=== PATIENT | male | born 1955 | race Caucasian/White ===

== ENCOUNTER 2018-01-06 08:39 | Emergency (ER) | payer BC, SELFPAY ==
[2018-01-06] VITALS (9 sets, daily range): BP systolic 113–178; BP diastolic 86–98; PULSE 11–119; RESP 20–24; TEMP 37.3–39.7; O2SAT 77–97; BMI 52.4
--- NOTE | 2018-01-06 08:48 | EKG12_ITS ---
Test Reason : SOB Blood Pressure : / mmHG Vent. Rate : 126 BPM Atrial Rate : 126 BPM P-R Int : 156 ms QRS Dur : 106 ms QT Int : 304 ms P-R-T Axes : 065 153 029 degrees QTc Int : 440 ms Sinus tachycardia Poor R wave progression Confirmed by SENAIT GUY MD ([id number]), script editor AMY PUGA ([id number] on 01/09/2018 1:35:52 PM Referred By: VALENTIN
[2018-01-06] MEDS: Ipratropium/Albuterol Sulfate 3 ML AMPUL.NEB INHALATION (08:49)
[2018-01-06 09:04] LABS: Absolute Lymphocyte Count 1.35 X10^3/ul (0.83-4.51); Absolute Neutrophil Count 8.5 X10^3/uL (2.0-7.7); Basophil# 0.02 X10^3/uL; Basophil% 0.2 % (0-1); Eosinophil# 0.06 X10^3/uL; Eosinophils% 0.6 % (0-5); Hematocrit 44.8 % (40-54); Hemoglobin 13.7 g/dl (13.0-16.5); Lymphocyte # 1.35 X10^3/ul (4.0); Lymphocyte % 12.7 % (19-41); Mean Corp Hgb Conc 30.6 g/gl (32-36); Mean Corpuscular Hgb 25.9 pg (27.0-32.0); Mean Corpuscular Volume 84.8 fL (80-94); Mean Platelet Vol. 9.8 fl (6.2-12.0); Monocyte# 0.71 X10^3/uL; Monocyte% 6.7 % (0-10); Neutrophil # 8.45 X10^3/uL (2.7-7.7); Neutrophil % 79.6 % (47-70); Platelet Count 192 K/mm3 (150-450); RBC Distribution Width CV 17.4 % (11.6-14.6); RBC Distribution Width SD 53.7 fl (35.1-43.9); Red Blood Count 5.28 M/mm3 (4.6-6.2); White Blood Count 10.6 K/mm3 (4.4-11.0)
[2018-01-06 09:05] LABS: POSITIVE COUNT NO; POSITIVE DIFFERENTIAL NO; POSITIVE MORPHOLOGY NO
--- NOTE | 2018-01-06 09:09 | ED.VISSUMM ---
- ER Visit Summary Date of Service: 01/06/18 Chief Complaint: [] Fever shortness of breath pulse ox 75 room air draining leg ulcers, history of DVT PE diagnosed 1 month ago at [facility] History of Present Illness: The patient is a 62 M [] multiple medical problems including the above apparently he developed chills at work he refused to come to the hospital coworkers called EMS and/or he was brought in. He was found to have a pulse ox of 75% on room air he is not known to require oxygen, he has obviously draining wounds to lower extremities and temperature 103.4 his blood pressure is 170/80 he is tachycardic to 120 he clearly falls into the sepsis treatment protocols. He is awake and alert oriented ?3 moving all 4 extremities indicates he has DVT PE diagnosed at [facility] about a month ago he has been on anticoagulant, he has chronic draining wounds to his lower extremities for which she seen multiple physicians at [facility], he did not realize he had a fever he basically reports he woke up felt fine went to work got shaking chills and was brought to the hospital he has had a cough for months he is eating drinking well his bowel bladder habits have been normal He denies any history of underlying lung disease except that that would be related to the PEs he has no history of COPD he is not known to require oxygen he is really on no meds except for the blood thinner by his history, he denies a history of ID PE or DVT previously to the above Physical Examination: [] Temperature is 103.4 his heart rates 120 his blood pressure is 170/80 his pulse ox is 75% on room air it improves to about a percent on a 50% Ventimask he speaking in full sentences he is in no distress he is alert ?3 moving all 4 extremities his HEENT exam shows a nose is congested the oral cavity is generally unremarkable the lungs are rhonchorous the heart tones are distant he is a very large gentleman he has a very protuberant nontender abdomen he has draining lesions to both lower extremities greater than left with signs of cellulitis no crepitance or subcu air appreciated he appears to have well perfused lower extremities to the toes pulses are palpable, there is some minor skin ulcerations bilaterally again right greater than left. He is awake alert coherent and competent I discussed sepsis hypoxia PE sudden from all the above or combination I explained the need for aggressive ED management and admission he adamantly declined that stating he just came in because of the chills he wanted something for that and wanted to be discharged I explained that if he went home he would , he clearly was able to explain my concerns and repeat and read back to me all of my concerns including the concern about sudden he clearly had capacity and demonstrated clear understanding of all the above but still refused therapy and admission, later he at least agreed to obtain screening labs IV fluids IV antibiotics I explained to him I felt would be prudent to at least talk to his family he would not provide me the phone number for his mother Test Results: [] Emergency Department Course and Treatment: [] Labs are generally unremarkable for him see those reports chest x-ray shows nothing acute EKG shows a sinus tach reevaluation his temperature now is 99 his blood pressure seems much better on oxygen his pulse ox is 95, on room air is at about 85 after an aerosol Sepsis sudden again he showed clear competency capacity he read back to me all of my concerns he simply stated he understood them and did not wish to be admitted he indicates he has an appointment see his family physician tomorrow at this time we provided wound care to lower extremities he will be discharged at his request and AGAINST MEDICAL ADVICE on Augmentin at his request he will sign out AMA, he does understand and agree to return if his symptoms change or intensified anyway and an inhaler other meds that he will take, please also note the patient has refused to give us consent to contact anyone that he is related to or anyone he knows Treatment Plan: [] Disposition: [] Home AGAINST MEDICAL ADVICE Impression: [] Sepsis, history of bilateral PE, hypoxia on room air, tachycardia fever bilateral lower extremity infections patient refused admission left AMA has capacity to make that decision This note was generated with [employer] dictation software. It may contain incorrect words, spelling, and punctuation that were not noted in review of the chart prior to signing ED Disposition - Plan for ED Patient: Chief Complaint: Shortness of Breath Referrals: Kennedi Lozano NP-C [Primary Care Provider] -
[2018-01-06 09:26] LABS: AST(SGOT) 17 U/L (15-37); Alanine Aminotransfer ALT/SGPT 13 U/L (16-61); Albumin, Serum 2.6 g/dL (3.2-5.0); Alkaline Phosphatase 62 U/L (45-117); Anion Gap 8 (5-15); BUN 15 mg/dL (7-18); BUN/Creat Ratio 18.4 RATIO (10-20); Bilirubin, Direct 0.24 mg/dL (0.00-0.30); Calcium,Total 8.5 mg/dL (8.5-10.1); Chloride 101 mmol/L (98-107); Creatinine, Serum 0.81 mg/dL (0.70-1.30); EST Glomerular Filtration Rate 102 mL/min (>60); Est Glom Filt Rate - Afr Amer 124 mL/min (>60); Estimated Creatinine Clearance 103.29 ml/min; Globulin 4.8 g/dL (2.2-4.2); Glucose 145 mg/dL (74-106); Potassium 3.4 mmol/L (3.5-5.1); Protein, Total 7.4 g/dL (6.4-8.2); Sodium Level 139 mmol/L (136-145)
--- NOTE | 2018-01-06 09:28 | RAD_ITS ---
STUDY: X-RAY CHEST REASON FOR EXAM: Male, 62 years old. Dyspnea. TECHNIQUE: Single AP portable view of the chest. COMPARISON: None. FINDINGS: The lungs are hypoexpanded. There is diffuse interstitial changes most marked at the lung bases. There is no demonstrated pleural abnormality. The heart is borderline enlarged. All mediastinum. There are densities in both lew suspicious for calcified lymph nodes. Normal visualized pulmonary arteries. Normal visualized aortic arch and descending thoracic aorta. The thoracic spine is obscured by the mediastinum. There is degenerative osteoarthritis of the bilateral shoulders. There is no demonstrated abnormality of the visualized soft tissue structures of the upper abdomen. RAD/Chest 1 View (Portable) IMPRESSION: Question old granulomatous disease. Electronically Signed: Damian Mullins DO at 10:01 EDT Tel [phone], Service support ,
[2018-01-06 09:30] LABS: BNP,B-Type NATRIURETIC PEPTIDE 207.8 pg/mL (0-100)
[2018-01-06] MEDS: Acetaminophen 500 MG Tablet 1000 MG PO (09:31)
[2018-01-06] MEDS: 0.9% Normal Saline 1,000 ML 150 ML IV (09:31)
[2018-01-06 09:32] LABS: Bacteria 0 SEEN /hpf (None Seen); Mucous, Urine 0 SEEN /hpf (<or=2+); Red Blood Cells-Urine 0 SEEN /hpf (0-5)
[2018-01-06 09:35] LABS: International Normalized Ratio 1.4; Prothrombin Time (Protime)PT. 17.1 SECONDS (11.7-14.9)
[2018-01-06 09:36] LABS: Partial Thromboplast Time 56.8 Seconds (24.1-36.2)
[2018-01-06 09:37] LABS: Color, Urine Yellow (Yellow); Glucose, Dipstick Normal (Normal); Ketone-Dipstick Negative (Negative); Leukocyte Esterase-Dipstick 25 /ul (Negative); Nitrite-Dipstick Negative (Negative); Occult Blood-Urine Negative /ul (Negative); Protein-Dipstick 30 mg/dl (Negative); Urine Clarity Clear (Clear); Urine Urobilinogen 4 mg/dl (Normal)
[2018-01-06 09:43] LABS: Urine Bilirubin Dipstick 1 mg/dL (Negative)
[2018-01-06 09:44] LABS: Amorphous Sediment 1+; Squamous Epithelial Cells - UA 0-5 SEEN /hpf (0-5); White Blood Cells 0-5 SEEN /hpf (0-5)
--- NOTE | 2018-01-06 10:34 | ED.DEP ---
ED Disposition - Plan for ED Patient: Chief Complaint: Shortness of Breath Instructions: Sepsis Prescriptions: Amox/Clavulanate Tablet [Augmentin Tablet] 875 mg PO Q12H #20 tab Referrals: Kennedi Lozano NP-C [Primary Care Provider] -
[2018-01-06] MEDS: BACITRACIN 15 GM Tube 1 APPLIC TOPICAL (13:08)
[2018-01-06 13:13] LABS: Reflex Lactate? Y
--- NOTE | 2018-01-07 12:10 | CM.ED ---
ED CALLBACK: Patient left AMA yesterday with a diagnosis of sepsis. Follow-up phone call at this time encouraging patient to come back to ED to be evaluated. Patient states that he is feeling weak today. Patient denies chills/fever and states he has not taken any fever reducing agents. Patient states that he has not filled his prescription for Augmentin yet, but plans to soon on his way to work. 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 I reviewed potential severity of sepsis left improperly treated and monitored. Patient states I think this antibiotic will help. I inquired what patients concern with admission to hospital was. Patient states insurance/cost is not a factor, but that I can't miss work. Once again, reviewed severity of illness and potential for quick decline. Patient did write down my number and I asked patient to call me with any concerns at all.
== END 2018-01-06 13:09 | disposition home or self-care (01) ==
LOC: ED 09:06
PROVIDERS: Emergency Provider Emergency Medicine; Family Provider Nurse Practitioner Primary Care; PCP Nurse Practitioner Primary Care
DX: A41.9 Sepsis, unspecified organism (principal); R09.02 Hypoxemia; R00.0 Tachycardia, unspecified; L97.929 Non-pressure chronic ulcer of unspecified part of left lower leg with unspecified severity; L97.919 Non-pressure chronic ulcer of unspecified part of right lower leg with unspecified severity; L03.116 Cellulitis of left lower limb; L03.115 Cellulitis of right lower limb; Z86.711 Personal history of pulmonary embolism; Z86.718 Personal history of other venous thrombosis and embolism; Z79.01 Long term (current) use of anticoagulants
CPT/HCPCS: 71045; 80048; 80076; 81001; 83605; 83880; 84484; 85025; 85610; 85730; 87040; 87086; 93005; 94640; 96365; 96367; 99285; J7030; J7040; P9612; A4216

== ENCOUNTER 2018-01-30 08:55 | Outpatient (RCR) | payer BC, SELFPAY ==
[2018-01-30 10:20] VITALS: BP 117/51; PULSE 91; RESP 18; TEMP 35.5
--- NOTE | 2018-01-30 11:45 | PCM.WC.HP ---
(1) Chronic ulcer of right leg with fat layer exposed Status: Resolved Current Visit: Yes Code(s): L97.912 - Non-pressure chronic ulcer of unspecified part of right lower leg with fat layer exposed (2) Smoker Status: Chronic Current Visit: Yes Code(s): F17.200 - Nicotine dependence, unspecified, uncomplicated (3) Obesity Status: Chronic Current Visit: Yes Code(s): E66.9 - Obesity, unspecified (4) Malnutrition Status: Chronic Current Visit: Yes Code(s): E46 - Unspecified protein-calorie malnutrition (5) Venous insufficiency Status: Chronic Current Visit: Yes (6) Edema, lower extremity Status: Chronic Current Visit: Yes Code(s): R60.0 - Localized edema History of Present Illness Date of Service: 01/30/18 Chief Complaint: right leg wound History of Wound: This 61 year old male present to the wound healing center for evaluation of right leg ulcer that has returned approximately 5 months ago. He is well-known to the wound care center in the past for this ulcer to the similar location. He denies current fever, chills, nausea, vomiting, calf pain. He has a procedure scheduled with Dr Awan for vein correction and failed to follow through redness. He elevates his leg and has stopped being compliant with the compression dressing. He has compression stockings at home. He denies redness or drainage. Past Medical History Past Medical History: Chronic Problems Smoker (Chronic) Obesity (Chronic) Malnutrition (Chronic) Venous insufficiency (Chronic) Edema, lower extremity (Chronic) Surgical History: no surgical history Allergies/Adverse Reactions: Allergies No Known Allergies Allergy (Verified 09/20/16 10:30) Home Medications: Ambulatory Orders Medication Instructions Recorded Apixaban [Eliquis] 5 mg PO BID 01/06/18 Albuterol IH (ProAir) [Proair Hfa 1 - 2 puff INHALATION Q6H PRN PRN 01/30/18 (SP)Vent Pts] Furosemide [Lasix] 20 mg PO DAILY 01/30/18 Lisinopril/Hydrochlorothiazide 1 tablet PO DAILY 01/30/18 [Zestoretic 20/12.5 Tablet] - Family History Maternal Stroke, Seizures Smoking Status: Light Smoker (<10/day) Review of Systems Constitutional: Denies: Chills, Fever, Weakness Cardiovascular: Reports: Edema. Denies: Claudication, Orthopnea Respiratory: Denies: Shortness of Breath Gastrointestinal: Denies: Nausea, Vomiting Musculoskeletal: Denies: Leg Pain Skin: Reports: Skin Changes, Wounds. Denies: Pruritis Neurological: Denies: Numbness Endocrine: Reports: Change in Body Habitus Hematologic/ Lymphatic: Reports: Hx of blood clot - Lung; he is on chronic Eliquis - Physical Exam Vital Signs Temp Pulse Resp BP 96 F L 91 18 117/51 L 01/30/18 10:20 01/30/18 10:20 01/30/18 10:20 01/30/18 10:20 General: Alert, Oriented x3, Cooperative Extremities: No cyanosis, Capillary Refill Less than 3 Seconds, No Calf Tenderness - Negative Tiana and [place] sign bilateral lower extremities, Diminished Peripheral Pulses, Edema - Bilateral lower extremities Skin: Ulcer/ Wound - No purulence, no erythema, streaking, no odor, no necrosis, no deep tissue exposure, no infection bilateral lower extremities. His skin is atrophic. There is some hair present to the right lower extremity. There is hyperpigmentation the right leg periwound site that is a cluster. Wound Measurements and Assessment WC - Nurse 1 - General Ulcer Measurement Start: 01/30/18 10:07 Freq: Status: Active Protocol: Activity Type Activity Date Activity User E-Sign Co-Sign Detail Recorded Client Recorded Date Recorded By Document 01/30/18 10:20 [id number] 01/30/18 10:30 RB 01/30/18 10:20 Wound Center Nurse 1 [Ulcer Assessment] 1-right galvez cluster -Combined with other wound No -Current Size (cm) - Length 17 -Current Size (cm) - Width 21 -Current Size (cm) - Depth 0.2 -Total Square Cm 357 -Photo Taken Yes -Tunneling No -Circular Undermining No -Classification - Thickness Full Thickness without Exposed Support Structure -Exudate Amt Medium (34-66%) -Exudate Type Serosanguineous -Wound Margin Distinct, Outline Attached -Granulation Amt Medium (34-66%) -Granulation Quality [place] -Slough/Fibrin Yes -Necrosis Amt Medium (34-66%) -Necrotic Tissue Type Adherent Slough -Structure Exposed N/A -Texture (Brittani-wound Skin Appearance) Assessed -Moisture (Brittani-wound Skin Appearance Assessed ) -Color (Brittani-wound Skin Appearance) Hemosiderin Staining -Temperature (Brittani-wound Skin No Abnormality Appearance) (Pt Warm) -Tenderness on Palpation (Brittani-wound No Skin Appearance) -Ulcer Cleansing Rinsed/ Irrigated with Saline -Foul Odor after Cleansing No -Anesthetic Used 4% Lidocaine Solution [Edema Assessment] -Lower Limb Edema Present Yes -Right Calf (cm) 61.2 -Right Ankle (cm) 37 -Left Calf (cm) 57 -Left Ankle (cm) 33.5 - Nurse 2 - General Ulcer CM Notes Start: 01/30/18 10:07 Freq: Status: Active Protocol: Activity Type Activity Date Activity User E-Sign Co-Sign Detail Recorded Client Recorded Date Recorded By Document 01/30/18 11:00 [id number] 01/30/18 11:01 01/30/18 11:00 Wound Center Nurse 2 [Procedure/Treatment] 1-right galvez cluster -Time 11:00 -Correct Patient Yes -Correct Side, Site, Position Yes -Correct Procedure Yes -Procedure Performed Yes -Type of Procedure Debridement -Clinical Debridement Subcutaneous -Post Debridement Size (cm) - Length 17.1 -Post Debridement Size (cm) - Width 21 -Post Debridement Size (cm) - Depth 0.2 -Total Square Cm 359.1 -Wound/Ulcer Outcome Not Healed -Ulcer Cleansing Rinsed/ Irrigated with Saline -Foul Odor after Cleansing No -Bioengineered Tissue No -Bleeding Controlled with Pressure -Other 70% ULCER debrided. -Treatment Response Procedure Tolerated Well [See Physician Procedure note for Specifics] Pain Scale: 0-10 Numeric [Pain] -Is Patient Pain Free? Yes Musculoskeletal: No Tenderness to Palpation of Joints or Extremities, Muscle Wasting, - - No crepitus or bogginess on palpation right lower extremity Neurological: - - Lack of epicritic sensation light touch right lower extremity Psych/Mental Status: Normal Affect, Appropriate Debridement Note Post-Debridement Measurements/Treatment - Nurse 2 - General Ulcer CM Notes Start: 01/30/18 10:07 Freq: Status: Active Protocol: Activity Type Activity Date Activity User E-Sign Co-Sign Detail Recorded Client Recorded Date Recorded By Document 01/30/18 11:00 JF [id number] 01/30/18 11:01 01/30/18 11:00 Wound Center Nurse 2 1-right galvez cluster -Time 11:00 -Correct Patient Yes -Correct Side, Site, Position Yes -Correct Procedure Yes -Procedure Performed Yes -Type of Procedure Debridement -Clinical Debridement Subcutaneous -Post Debridement Size (cm) - Length 17.1 -Post Debridement Size (cm) - Width 21 -Post Debridement Size (cm) - Depth 0.2 -Total Square Cm 359.1 -Wound/Ulcer Outcome Not Healed -Ulcer Cleansing Rinsed/ Irrigated with Saline -Foul Odor after Cleansing No -Bioengineered Tissue No -Bleeding Controlled with Pressure -Other 70% ULCER debrided. -Treatment Response Procedure Tolerated Well Pain Scale: 0-10 Numeric Is Patient Pain Free? Yes Wound debrided: leg Laterality: Right Type of Debridement: Excisional debridement Anesthesia Used: 5% Lidocaine Gel Depth: in the subcutaneous layer Percentage of wound debrided: 70 Instrument Used: #15 blade Tissue Removed: fibrous, devitalized subcutaneous, biofilm, slough Severity: Fat Layer Exposed Amount of bleeding with debridement: Mild Bleeding Controlled with: Pressure Patient tolerated procedure well Assessment/Plan Active Problems Smoker (Chronic) Obesity (Chronic) Malnutrition (Chronic) Venous insufficiency (Chronic) Edema, lower extremity (Chronic) Assessment: right leg ulcer-return. edema right lower extremity, venous insufficiency noted. diabetes. malnutrition. comorbidities: obesity. smoker Plan: I discussed this patient's case and care plan. His wound is healed today. To elevate legs at rest to decrease pressure to his healing ulceration site. To control edema to optimize healing. To elevate limbs at rest. Venous doppler with venous reflux examination was ordered to assess for insufficiency and this was discussed. Intervention was recommended and scheduled with Dr. Awan was not completed. A new referral was provided today and encourage compliance. I advised him to call and f/u on scheduling this or provide a more reliable way to contact him to facilitate this process. To resume compression stocking use that he is at home. An order for CircAid compression dressing was placed today to better control his leg edema. To moisturize leg daily with eucerin and cleanse with soap and water. Smoking cessation was encouraged. To monitor for signs of infection or for new wound formation or worsening status. Debridement was performed as noted in the clinical panel. He was advised to change dressing daily to target take. To return to clinic in 1 week or call sooner if he has any questions or concerns. I answered all his questions today.
== END 2018-01-31 23:59 ==
LOC: WC 08:55
PROVIDERS: Family Provider Nurse Practitioner Primary Care; PCP Nurse Practitioner Primary Care; Visit Provider Podiatrist
DX: L97.912 Non-pressure chronic ulcer of unspecified part of right lower leg with fat layer exposed (principal); E66.9 Obesity, unspecified; E46 Unspecified protein-calorie malnutrition; I87.2 Venous insufficiency (chronic) (peripheral); R60.0 Localized edema; F17.200 Nicotine dependence, unspecified, uncomplicated
CPT/HCPCS: 11042; 11045; 29581; 99212; G0463

== ENCOUNTER → 2018-02-04 09:53 | Outpatient (CLI) | payer BC, SELFPAY ==
--- NOTE | 2018-02-04 09:53 | DT_ITS ---
This patient was seen during an EMR downtime February 04, 2018 - February 11, 2018. This patient may have a combination of paper and electronic documentation or all paper documentation. All documentation is viewable within the e-chart portion of [employer] for each patient visit.
[2018-02-08 20:29] LABS: Red Blood Count 5.39 M/mm3 (4.6-6.2); White Blood Count 8.5 K/mm3 (4.4-11.0)
[2018-02-08 20:30] LABS: Absolute Lymphocyte Count 1.32 X10^3/ul (0.83-4.51); Absolute Neutrophil Count 6.3 X10^3/uL (2.0-7.7); Basophil# 0.01 X10^3/uL; Basophil% 0.1 % (0-1); Eosinophil# 0.04 X10^3/uL; Eosinophils% 0.5 % (0-5); Hematocrit 45.5 % (40-54); Lymphocyte # 1.32 X10^3/ul (4.0); Lymphocyte % 15.5 % (19-41); Mean Corp Hgb Conc 30.8 g/gl (32-36); Mean Corpuscular Volume 84.4 fL (80-94); Mean Platelet Vol. 11.2 fl (6.2-12.0); Monocyte% 9.4 % (0-10); Neutrophil # 6.32 X10^3/uL (2.7-7.7); Neutrophil % 74.1 % (47-70); POSITIVE COUNT NO; POSITIVE DIFFERENTIAL NO; POSITIVE MORPHOLOGY NO; Platelet Count 177 K/mm3 (150-450); RBC Distribution Width CV 19.4 % (11.6-14.6); RBC Distribution Width SD 59.5 fl (35.1-43.9)
[2018-02-08 20:31] LABS: ALB/GLOB Ratio 0.5 RATIO (0.9-2.4); AST(SGOT) 22 U/L (15-37); Albumin, Serum 2.5 g/dL (3.2-5.0); Alkaline Phosphatase 44 U/L (45-117); BUN 36 mg/dL (7-18); BUN/Creat Ratio 39.1 RATIO (10-20); Calcium,Total 8.4 mg/dL (8.5-10.1); Creatinine, Serum 0.92 mg/dL (0.70-1.30); EST Glomerular Filtration Rate 89 mL/min (>60); Est Glom Filt Rate - Afr Amer 108 mL/min (>60); Globulin 5.3 g/dL (2.2-4.2); Glucose 112 mg/dL (74-106); Protein, Total 7.8 g/dL (6.4-8.2)
[2018-02-08 20:32] LABS: Alanine Aminotransfer ALT/SGPT 24 U/L (16-61); Sodium Level 136 mmol/L (136-145)
[2018-02-08 20:34] LABS: Anion Gap 8 (5-15); Chloride 96 mmol/L (98-107); Erythrocyte Sedimentation Rate 29 mm/hr (0-20)
== END ==
PROVIDERS: Family Provider Nurse Practitioner Primary Care; PCP Nurse Practitioner Primary Care; Visit Provider Podiatrist
DX: L97.912 Non-pressure chronic ulcer of unspecified part of right lower leg with fat layer exposed (principal)
CPT/HCPCS: 36415; 80053; 85025; 85652; 86140

== ENCOUNTER 2018-02-27 08:30 | Outpatient (RCR) | payer BC, SELFPAY ==
[2018-02-01 01:17] VITALS: BP 117/51; PULSE 91; RESP 18; TEMP 35.5
[2018-02-01 09:01] VITALS: BP 130/80; PULSE 101; RESP 20; TEMP 37.3
--- NOTE | 2018-02-01 11:10 | PN.PCM_ITS ---
(1) Edema, lower extremity Status: Chronic Current Visit: Yes Code(s): R60.0 - Localized edema (2) Malnutrition Status: Chronic Current Visit: Yes Code(s): E46 - Unspecified protein- calorie malnutrition (3) Obesity Status: Chronic Current Visit: Yes Code(s): E66.9 - Obesity, unspecified (4) Smoker Status: Chronic Current Visit: Yes Code(s): F17.200 - Nicotine dependence, unspecified, uncomplicated (5) Venous insufficiency Status: Chronic Current Visit: No (6) Chronic ulcer of right leg with fat layer exposed Status: Resolved Current Visit: Yes Code(s): L97.912 - Non-pressure chronic ulcer of unspecified part of right lower leg with fat layer exposed Type of Wound Date of Service: 02/01/18 Chief Complaint: right leg wound History of Wound: This 61 year old male present to the wound healing center for evaluation of right leg ulcer that has returned approximately 5 months ago. He is well-known to the wound care center in the past for this ulcer to the similar location. He denies current fever, chills, nausea, vomiting, calf pain. He has a procedure scheduled with Dr Awan for vein correction and failed to follow through redness. He elevates his leg and has stopped being compliant with the compression dressing. He has compression stockings at home. He denies redness or drainage. Progress of Wound: I was asked to come into the room because patient is developing Rigors and fever low-grade at this point. Patient states he has developed a cough nonproductive and was here for a nurse visit for wound care. Patient sees Dr. Sania Lynch usually and have him follow-up with him on Sunday or Sunday if not improving on the Z-Carlos prescribed. HEENT within normal limits lungs diminished had some rhonchorous expiratory wheezing cleared with cough. Denies chest pain shortness of breath or nauseous or vomiting. - Physical Exam Vital Signs Temp Pulse Resp BP 99.1 F 101 H 20 H 130/80 H 02/01/18 09:01 02/01/18 09:01 02/01/18 09:01 02/01/18 09:01 General: Oriented x3, Cooperative, Well developed HEENT: Atraumatic, PERRLA, TM's Clear Oral: Moist Mucosa Neck: Supple, No JVD Lungs: Clear to auscultation, Normal air movement, Diminished, Wheezes Cardiovascular: Regular rate, Regular Rhythm Abdomen: Bowel Sounds Present, Soft, Non Tender, No Hepato-splenomegaly Extremities: No clubbing, Edema Skin: No rashes Wound Measurements and Assessment WC - Nurse 1 - General Ulcer Measurement Start: 02/01/18 09:01 Freq: Status: Active Protocol: Activity Type Activity Date Activity User E-Sign Co-Sign Detail Recorded Client Recorded Date Recorded By Document 02/01/18 09:04 [id number] 02/01/18 09:17 DALIA 02/01/18 09:04 Wound Center Nurse 1 [Ulcer Assessment] #2-right galvez cluster -Combined with other wound No -Current Size (cm) - Length 5.1 -Current Size (cm) - Width 5.5 -Current Size (cm) - Depth 0.2 -Total Square Cm 28.05 -Photo Taken No -Epithelialization None Present -Tunneling No -Undermining/Tunneling No -Circular Undermining No -Classification - Thickness Full Thickness without Exposed Support Structure -Change in Wound Grade/Stage No Query Text:If change please identify the Stage/Grade in the comment (ie. S2 G3) -Exudate Amt Medium (34-66%) -Exudate Type Serosanguineous -Wound Margin Distinct, Outline Attached -Granulation Amt Medium (34-66%) -Granulation Quality Red -Slough/Fibrin Yes -Necrosis Amt None Present (0 %) -Necrotic Tissue Type Adherent Slough -Structure Exposed N/A -Texture (Brittani-wound Skin Appearance) Localized Edema -Moisture (Brittani-wound Skin Appearance No Abnormality ) -Color (Brittani-wound Skin Appearance) Hemosiderin Staining -Temperature (Brittani-wound Skin No Abnormality Appearance) (Pt Warm) -Tenderness on Palpation (Brittani-wound No Skin Appearance) -Ulcer Cleansing Rinsed/ Irrigated with Saline -Foul Odor after Cleansing No [Edema Assessment] -Lower Limb Edema Present Yes -Right Calf (cm) 58.0 -Right Ankle (cm) 34.5 -Left Calf (cm) 58.5 -Left Ankle (cm) 35.5 Musculoskeletal: No Tenderness to Palpation of Joints or Extremities Lymphatic: No Cervical, Supraclavicular, or Inguinal Adenopathy Neurological: Cranial nerves II-XII grossly intact, Neuro grossly intact Psych/Mental Status: Normal Affect, Appropriate, Alert and oriented to time, place, person, mood and affect Debridement Note No debridement was completed today Assessment/Plan Active Problems Smoker (Chronic) Obesity (Chronic) Malnutrition (Chronic) Edema, lower extremity (Chronic) Assessment: right leg ulcer-return. edema right lower extremity, venous insufficiency noted. diabetes. malnutrition. comorbidities: obesity. Bronchitis. Fever. smoker Plan: Continue treatment as prescribed by physician. Take the Z-Carlos as directed with food or after eating. Push fluids take Tylenol for fever and chills. Follow-up with Dr. Lozano if not improving over the weekend
[2018-02-13 09:30] VITALS: BP 128/74; PULSE 89; RESP 18; TEMP 36
--- NOTE | 2018-02-13 09:58 | PCM.WC.PN ---
(1) Chronic ulcer of right leg with fat layer exposed Status: Chronic Current Visit: Yes Code(s): L97.912 - Non-pressure chronic ulcer of unspecified part of right lower leg with fat layer exposed (2) Venous insufficiency Status: Chronic Current Visit: Yes (3) Edema, lower extremity Status: Chronic Current Visit: Yes Code(s): R60.0 - Localized edema (4) Ulcer of left lower extremity with fat layer exposed Status: Acute Current Visit: Yes Code(s): L97.922 - Non-pressure chronic ulcer of unspecified part of left lower leg with fat layer exposed Type of Wound Date of Service: 02/13/18 Chief Complaint: right leg wound History of Wound: This 63-year-old male returns to clinic for follow-up of right leg ulcers and he also has a new left leg ulcer. He reports continued weeping. He denies fevers chills nausea vomiting. He did obtain his CircAid compression dressing for the right lower extremity and asked for an educational session on application today. He denies calf pain. Progress of Wound: improving right. new left leg wound - Physical Exam Vital Signs Temp Pulse Resp BP 96.8 F L 89 18 128/74 H 02/13/18 09:30 02/13/18 09:30 02/13/18 09:30 02/13/18 09:30 General: Alert, Oriented x3, Cooperative Extremities: No cyanosis, Capillary Refill Less than 3 Seconds, No Calf Tenderness - Negative Tiana and [place] sign bilateral, Diminished Peripheral Pulses Skin: Ulcer/ Wound - No purulence, no erythema, streaking, no odor, no infection. Decreased wound sizes to the right limb with peripheral epithelialization. This is a cluster measurement and only a percentage was debrided. The skin is atrophic and with hyperpigmentation bilateral. There is a new wound to the posterior left leg. There is no purulence, erythema, streaking, odor, infection, or necrosis bilateral Wound Measurements and Assessment WC - Nurse 1 - General Ulcer Measurement Start: 02/01/18 09:01 Freq: Status: Active Protocol: Activity Type Activity Date Activity User E-Sign Co-Sign Detail Recorded Client Recorded Date Recorded By Document 02/13/18 09:30 RONNY [id number] 02/13/18 09:32 RONNY 02/13/18 09:30 Wound Center Nurse 1 [Ulcer Assessment] 3-left posterior calf -Combined with other wound No -Current Size (cm) - Length 0.4 -Current Size (cm) - Width 0.3 -Current Size (cm) - Depth 0.1 -Total Square Cm 0.12 -Photo Taken Yes -Epithelialization Small 1-33% -Tunneling No -Undermining/Tunneling No -Circular Undermining No -Exudate Amt Medium (34-66%) -Exudate Type Serosanguineous -Wound Margin Flat & Intact -Granulation Amt Medium (34-66%) -Granulation Quality [place] -Slough/Fibrin Yes -Necrosis Amt Small (1-33%) -Necrotic Tissue Type Adherent Slough -Structure Exposed N/A -Texture (Brittani-wound Skin Appearance) Assessed Localized Edema -Moisture (Brittani-wound Skin Appearance Assessed ) -Color (Brittani-wound Skin Appearance) Assessed -Temperature (Brittani-wound Skin No Abnormality Appearance) (Pt Warm) -Tenderness on Palpation (Brittani-wound No Skin Appearance) -Ulcer Cleansing Wound Cleanser -Foul Odor after Cleansing No -Anesthetic Used 4% Lidocaine Solution #2-right galvez cluster -Combined with other wound No -Current Size (cm) - Length 5.8 -Current Size (cm) - Width 8.8 -Current Size (cm) - Depth 0.2 -Total Square Cm 51.04 -Photo Taken No -Epithelialization Medium 34-66% -Tunneling No -Undermining/Tunneling No -Circular Undermining No -Exudate Amt Medium (34-66%) -Exudate Type Serosanguineous -Wound Margin Flat & Intact -Granulation Amt Medium (34-66%) -Granulation Quality Red -Slough/Fibrin Yes -Necrosis Amt Medium (34-66%) -Necrotic Tissue Type Adherent Slough -Structure Exposed N/A -Texture (Brittani-wound Skin Appearance) Assessed Localized Edema -Moisture (Brittani-wound Skin Appearance Assessed ) Dry/Scaly -Color (Brittani-wound Skin Appearance) Assessed Hemosiderin Staining -Temperature (Brittani-wound Skin No Abnormality Appearance) (Pt Warm) -Tenderness on Palpation (Brittani-wound No Skin Appearance) -Ulcer Cleansing Wound Cleanser -Foul Odor after Cleansing No -Anesthetic Used 4% Lidocaine Solution [Edema Assessment] -Lower Limb Edema Present Yes -Right Calf (cm) 58 -Right Ankle (cm) 35.6 -Left Calf (cm) 60.8 -Left Ankle (cm) 37.5 WC - Nurse 2 - General Ulcer CM Notes Start: 02/01/18 09:01 Freq: Status: Active Protocol: Activity Type Activity Date Activity User E-Sign Co-Sign Detail Recorded Client Recorded Date Recorded By Document 02/13/18 09:39 RONNY [id number] 02/13/18 09:41 RONNY 02/13/18 09:39 Wound Center Nurse 2 [Procedure/Treatment] 3-left posterior calf -Time 09:40 -Correct Patient Yes -Correct Side, Site, Position Yes -Correct Procedure Yes -Procedure Performed Yes -Type of Procedure Debridement -Clinical Debridement Subcutaneous -Post Debridement Size (cm) - Length 0.5 -Post Debridement Size (cm) - Width 0.3 -Post Debridement Size (cm) - Depth 0.1 -Total Square Cm 0.15 -Wound/Ulcer Outcome Not Healed -Ulcer Cleansing Rinsed/ Irrigated with Saline -Foul Odor after Cleansing No -Bioengineered Tissue No -Bleeding Controlled with Pressure -Treatment Response Procedure Tolerated Well #2-right galvez cluster -Time 09:40 -Correct Patient Yes -Correct Side, Site, Position Yes -Correct Procedure Yes -Procedure Performed Yes -Type of Procedure Debridement -Clinical Debridement Subcutaneous -Post Debridement Size (cm) - Length 5.9 -Post Debridement Size (cm) - Width 8.9 -Post Debridement Size (cm) - Depth 0.2 -Total Square Cm 52.51 -Wound/Ulcer Outcome Not Healed -Ulcer Cleansing Rinsed/ Irrigated with Saline -Foul Odor after Cleansing No -Bioengineered Tissue No -Bleeding Controlled with Pressure -Treatment Response Procedure Tolerated Well [See Physician Procedure note for Specifics] Pain Scale: 0-10 Numeric [Pain] -Is Patient Pain Free? Yes Musculoskeletal: No Tenderness to Palpation of Joints or Extremities, Muscle Wasting, - - No pain with movement manipulation bilateral Neurological: - - Diminished epicritic sensation light touch Psych/Mental Status: Normal Affect, Appropriate Debridement Note Post-Debridement Measurements/Treatment WC - Nurse 2 - General Ulcer CM Notes Start: 02/01/18 09:01 Freq: Status: Active Protocol: Activity Type Activity Date Activity User E-Sign Co-Sign Detail Recorded Client Recorded Date Recorded By Document 02/13/18 09:39 RONNY [id number] 02/13/18 09:41 RONNY 02/13/18 09:39 Wound Center Nurse 2 3-left posterior calf -Time 09:40 -Correct Patient Yes -Correct Side, Site, Position Yes -Correct Procedure Yes -Procedure Performed Yes -Type of Procedure Debridement -Clinical Debridement Subcutaneous -Post Debridement Size (cm) - Length 0.5 -Post Debridement Size (cm) - Width 0.3 -Post Debridement Size (cm) - Depth 0.1 -Total Square Cm 0.15 -Wound/Ulcer Outcome Not Healed -Ulcer Cleansing Rinsed/ Irrigated with Saline -Foul Odor after Cleansing No -Bioengineered Tissue No -Bleeding Controlled with Pressure -Treatment Response Procedure Tolerated Well #2-right galvez cluster -Time 09:40 -Correct Patient Yes -Correct Side, Site, Position Yes -Correct Procedure Yes -Procedure Performed Yes -Type of Procedure Debridement -Clinical Debridement Subcutaneous -Post Debridement Size (cm) - Length 5.9 -Post Debridement Size (cm) - Width 8.9 -Post Debridement Size (cm) - Depth 0.2 -Total Square Cm 52.51 -Wound/Ulcer Outcome Not Healed -Ulcer Cleansing Rinsed/ Irrigated with Saline -Foul Odor after Cleansing No -Bioengineered Tissue No -Bleeding Controlled with Pressure -Treatment Response Procedure Tolerated Well Pain Scale: 0-10 Numeric Is Patient Pain Free? Yes Wound debrided: leg cluster Laterality: Right Type of Debridement: Excisional debridement Anesthesia Used: 5% Lidocaine Gel Depth: in the subcutaneous layer Percentage of wound debrided: 60 Instrument Used: #15 blade Tissue Removed: fibrous, devitalized subcutaneous, biofilm, slough Severity: Fat Layer Exposed Amount of bleeding with debridement: Mild Bleeding Controlled with: Pressure Patient tolerated procedure well - Additional Wound Wound debrided: posterior leg Laterality: Left Type of Debridement: Excisional debridement Anesthesia Used: 5% Lidocaine Gel Depth: in the subcutaneous layer Percentage of wound debrided: 100 Instrument Used: #15 blade Tissue Removed: fibrous, devitalized subcutaneous, biofilm, slough Severity: Fat Layer Exposed Amount of bleeding with debridement: Mild Bleeding Controlled with: Pressure Patient tolerated procedure: Patient tolerated procedure well Assessment/Plan Active Problems Ulcer of left lower extremity with fat layer exposed (Acute) Smoker (Chronic) Obesity (Chronic) Malnutrition (Chronic) Venous insufficiency (Chronic) Chronic ulcer of right leg with fat layer exposed (Chronic) Edema, lower extremity (Chronic) Assessment: right leg ulcer. new left leg ulcer. edema right lower extremity, venous insufficiency noted. diabetes. malnutrition. comorbidities: obesity. Bronchitis. Fever. smoker
[2018-02-20 09:15] VITALS: BP 123/67; PULSE 88; RESP 18; TEMP 36.4
--- NOTE | 2018-02-20 09:36 | PCM.WC.PN ---
(1) Chronic ulcer of right leg with fat layer exposed Status: Chronic Current Visit: Yes Code(s): L97.912 - Non-pressure chronic ulcer of unspecified part of right lower leg with fat layer exposed (2) Venous insufficiency Status: Chronic Current Visit: Yes (3) Edema, lower extremity Status: Chronic Current Visit: Yes Code(s): R60.0 - Localized edema (4) Ulcer of left lower extremity with fat layer exposed Status: Acute Current Visit: Yes Code(s): L97.922 - Non-pressure chronic ulcer of unspecified part of left lower leg with fat layer exposed Type of Wound Date of Service: 02/20/18 Chief Complaint: right leg wound History of Wound: This 63-year-old male returns to clinic for follow-up of right and left leg ulcers. He reports continued but decreased weeping. He denies fevers chills nausea vomiting. He did obtain his CircAid compression dressing for the right lower extremity. Garment has not arrived yet. His left lower extremity CircAid He denies calf pain. Progress of Wound: Improving bilateral - Physical Exam Vital Signs Temp Pulse Resp BP 97.5 F L 88 18 123/67 H 02/20/18 09:15 02/20/18 09:15 02/20/18 09:15 02/20/18 09:15 General: Alert, Oriented x3, Cooperative Extremities: No cyanosis, Capillary Refill Less than 3 Seconds, No Calf Tenderness, Diminished Peripheral Pulses, Edema Skin: Ulcer/ Wound - No purulence, no erythema, streaking, no infection. Improved granulation tissue bilateral. The peripheral skin is atrophic. Wound Measurements and Assessment WC - Nurse 1 - General Ulcer Measurement Start: 02/01/18 09:01 Freq: Status: Active Protocol: Activity Type Activity Date Activity User E-Sign Co-Sign Detail Recorded Client Recorded Date Recorded By Document 02/20/18 09:15 [email or web address] [id number] 02/20/18 09:17 RONNY 02/20/18 09:15 Wound Center Nurse 1 [Ulcer Assessment] 3-left posterior calf -Combined with other wound No -Current Size (cm) - Length 0.3 -Current Size (cm) - Width 0.2 -Current Size (cm) - Depth 0.1 -Total Square Cm 0.06 -Photo Taken No -Epithelialization Large 67-100% -Tunneling No -Undermining/Tunneling No -Circular Undermining No -Exudate Amt None Present (0 %) -Wound Margin Flat & Intact -Granulation Amt None Present (0 %) -Slough/Fibrin Yes -Necrosis Amt Large (67-100%) -Necrotic Tissue Type Adherent Slough -Texture (Brittani-wound Skin Appearance) Assessed Localized Edema Scarring -Moisture (Brittani-wound Skin Appearance Assessed ) Dry/Scaly -Color (Brittani-wound Skin Appearance) Assessed Hemosiderin Staining -Temperature (Brittani-wound Skin No Abnormality Appearance) (Pt Warm) -Tenderness on Palpation (Brittani-wound No Skin Appearance) -Ulcer Cleansing Rinsed/ Irrigated with Saline -Foul Odor after Cleansing No -Anesthetic Used 4% Lidocaine Solution #2-right galvez cluster -Combined with other wound No -Current Size (cm) - Length 2.0 -Current Size (cm) - Width 1.9 -Current Size (cm) - Depth 0.1 -Total Square Cm 3.80 -Photo Taken No -Epithelialization Medium 34-66% -Tunneling No -Undermining/Tunneling No -Circular Undermining No -Exudate Amt Medium (34-66%) -Exudate Type Serous -Wound Margin Flat & Intact -Granulation Amt Medium (34-66%) -Granulation Quality Red -Slough/Fibrin Yes -Necrosis Amt Small (1-33%) -Necrotic Tissue Type Adherent Slough -Structure Exposed N/A -Texture (Brittani-wound Skin Appearance) Assessed Excoriation Localized Edema -Moisture (Brittani-wound Skin Appearance Assessed ) Dry/Scaly -Color (Brittani-wound Skin Appearance) Assessed Hemosiderin Staining -Temperature (Brittani-wound Skin No Abnormality Appearance) (Pt Warm) -Tenderness on Palpation (Brittani-wound No Skin Appearance) -Ulcer Cleansing Rinsed/ Irrigated with Saline -Foul Odor after Cleansing No -Anesthetic Used 4% Lidocaine Solution [Edema Assessment] -Lower Limb Edema Present Yes -Right Calf (cm) 60 -Right Ankle (cm) 34.6 -Left Calf (cm) 61.6 -Left Ankle (cm) 35.7 WC - Nurse 2 - General Ulcer CM Notes Start: 02/01/18 09:01 Freq: Status: Active Protocol: Activity Type Activity Date Activity User E-Sign Co-Sign Detail Recorded Client Recorded Date Recorded By Document 02/20/18 09:21 [id number] 02/20/18 09:24 02/20/18 09:21 Wound Center Nurse 2 [Procedure/Treatment] 3-left posterior calf -Time 09:24 -Correct Patient Yes -Correct Side, Site, Position Yes -Correct Procedure Yes -Procedure Performed Yes -Type of Procedure Debridement -Clinical Debridement Subcutaneous -Post Debridement Size (cm) - Length 0.3 -Post Debridement Size (cm) - Width 0.3 -Post Debridement Size (cm) - Depth 0.1 -Total Square Cm 0.09 -Wound/Ulcer Outcome Not Healed -Ulcer Cleansing Rinsed/ Irrigated with Saline -Foul Odor after Cleansing No -Bioengineered Tissue No -Bleeding Controlled with Pressure -Treatment Response Procedure Tolerated Well #2-right galvez cluster -Time 09:24 -Correct Patient Yes -Correct Side, Site, Position Yes -Correct Procedure Yes -Procedure Performed Yes -Type of Procedure Debridement -Clinical Debridement Subcutaneous -Post Debridement Size (cm) - Length 2 -Post Debridement Size (cm) - Width 2 -Post Debridement Size (cm) - Depth 0.1 -Total Square Cm 4 -Wound/Ulcer Outcome Not Healed -Ulcer Cleansing Rinsed/ Irrigated with Saline -Foul Odor after Cleansing No -Bioengineered Tissue No -Bleeding Controlled with Pressure -Treatment Response Procedure Tolerated Well [See Physician Procedure note for Specifics] Pain Scale: 0-10 Numeric [Pain] -Is Patient Pain Free? Yes Musculoskeletal: No Tenderness to Palpation of Joints or Extremities, Muscle Wasting Lymphatic: - - Lymphedema bilateral lower remedies of hyperpigmentation; no induration to lower limbs Neurological: - - Lack of epicritic sensation bilateral lower extremities Psych/Mental Status: Normal Affect, Appropriate Debridement Note Post-Debridement Measurements/Treatment WC - Nurse 2 - General Ulcer CM Notes Start: 02/01/18 09:01 Freq: Status: Active Protocol: Activity Type Activity Date Activity User E-Sign Co-Sign Detail Recorded Client Recorded Date Recorded By Document 02/13/18 09:39 [id number] 02/13/18 09:41 Document 02/20/18 09:21 [id number] 02/20/18 09:24 02/13/18 02/20/18 09:39 09:21 Wound Center Nurse 2 3-left posterior calf -Time 09:40 09:24 -Correct Patient Yes Yes -Correct Side, Site, Position Yes Yes -Correct Procedure Yes Yes -Procedure Performed Yes Yes -Type of Procedure Debridement Debridement -Clinical Debridement Subcutaneous Subcutaneous -Post Debridement Size (cm) - Length 0.5 0.3 -Post Debridement Size (cm) - Width 0.3 0.3 -Post Debridement Size (cm) - Depth 0.1 0.1 -Total Square Cm 0.15 0.09 -Wound/Ulcer Outcome Not Healed Not Healed -Ulcer Cleansing Rinsed/ Rinsed/ Irrigated with Irrigated with Saline Saline -Foul Odor after Cleansing No No -Bioengineered Tissue No No -Bleeding Controlled with Pressure Pressure -Treatment Response Procedure Procedure Tolerated Well Tolerated Well #2-right galvez cluster -Time 09:40 09:24 -Correct Patient Yes Yes -Correct Side, Site, Position Yes Yes -Correct Procedure Yes Yes -Procedure Performed Yes Yes -Type of Procedure Debridement Debridement -Clinical Debridement Subcutaneous Subcutaneous -Post Debridement Size (cm) - Length 5.9 2 -Post Debridement Size (cm) - Width 8.9 2 -Post Debridement Size (cm) - Depth 0.2 0.1 -Total Square Cm 52.51 4 -Wound/Ulcer Outcome Not Healed Not Healed -Ulcer Cleansing Rinsed/ Rinsed/ Irrigated with Irrigated with Saline Saline -Foul Odor after Cleansing No No -Bioengineered Tissue No No -Bleeding Controlled with Pressure Pressure -Other 60% of ulcer was debrided. -Treatment Response Procedure Procedure Tolerated Well Tolerated Well Pain Scale: 0-10 Numeric Is Patient Pain Free? Yes Yes Wound debrided: anterior leg Laterality: Right Type of Debridement: Excisional debridement Anesthesia Used: 5% Lidocaine Gel Depth: in the subcutaneous layer Percentage of wound debrided: 100 Instrument Used: 5mm curette Tissue Removed: fibrous, devitalized subcutaneous, biofilm, slough Severity: Fat Layer Exposed Amount of bleeding with debridement: Mild Bleeding Controlled with: Pressure Patient tolerated procedure well - Additional Wound Wound debrided: posterior leg Laterality: Left Type of Debridement: Excisional debridement Anesthesia Used: 4% Lidocaine Solution Depth: in the subcutaneous layer Percentage of wound debrided: 100 Instrument Used: 3mm curette Tissue Removed: fibrous, devitalized subcutaneous, biofilm, slough Severity: Fat Layer Exposed Amount of bleeding with debridement: Mild Bleeding Controlled with: Pressure Patient tolerated procedure: Patient tolerated procedure well Assessment/Plan Active Problems Ulcer of left lower extremity with fat layer exposed (Acute) Smoker (Chronic) Obesity (Chronic) Malnutrition (Chronic) Venous insufficiency (Chronic) Chronic ulcer of right leg with fat layer exposed (Chronic) Edema, lower extremity (Chronic) Assessment: right leg ulcer. left leg ulcer. edema right lower extremity, venous insufficiency noted. diabetes. malnutrition. comorbidities: obesity. Bronchitis. Fever. smoker Plan: I discussed this patient's case and care plan. Debridement was performed as noted in the clinical nursing panel. To elevate legs at rest to decrease pressure to his healing ulceration site. To control edema to optimize healing. To elevate limbs at rest. To continue compression dressing with the stocking to the left limb. A new CircAid compression dressing was also ordered to the left limb and upon receipt he can also apply this at home. Venous doppler with venous reflux examination was ordered to assess for insufficiency and this was discussed. Intervention was recommended and scheduled with Dr. Awan was not completed. He was advised to follow-up as scheduled. Smoking cessation was encouraged. To monitor for signs of infection or for new wound formation or worsening status. He was reassured this is not noted today. Debridement was performed as noted in the clinical panel. Dara was applied he was advised to change this daily to both limbs. His onset of wound was December 31, 2017 and he has not demonstrated closure with traditional wound care. I recommend application of advanced wound care product and prior authorization will be initiated for epi fix. The indications, planned procedure, and anticipated healing time management were discussed in detail. He is amenable to proceed. It is okay for him to shower and wash his legs gently with soap and water. To return to clinic in 1 week or call sooner if he has any questions or concerns. I answered all his questions today.
[2018-02-27 08:13] VITALS: BP 120/77; PULSE 91; RESP 20; TEMP 36.5
--- NOTE | 2018-02-27 09:58 | PN.PCM_ITS ---
(1) Chronic ulcer of right leg with fat layer exposed Status: Chronic Current Visit: Yes Code(s): L97.912 - Non-pressure chronic ulcer of unspecified part of right lower leg with fat layer exposed (2) Venous insufficiency Status: Chronic Current Visit: Yes (3) Edema, lower extremity Status: Chronic Current Visit: Yes Code(s): R60.0 - Localized edema (4) Ulcer of left lower extremity with fat layer exposed Status: Resolved Current Visit: Yes Code(s): L97.922 - Non-pressure chronic ulcer of unspecified part of left lower leg with fat layer exposed Type of Wound Date of Service: 02/27/18 Chief Complaint: right leg wound History of Wound: This 63-year-old male returns to clinic for follow-up of right and left leg ulcers. He reports continued but decreased weeping. He denies fevers chills nausea vomiting. He did obtain his CircAid compression dressing for the right lower extremity. He uses properly is advised. His left lower extremity CircAid He denies calf pain. He is scheduled to see Dr. Awan for venous evaluation and intervention with the next 2 weeks. He denies left lower extremity drainage or redness. Progress of Wound: Improving right and healed left - Physical Exam Vital Signs Temp Pulse Resp BP 97.7 F L 91 20 H 120/77 02/27/18 08:13 02/27/18 08:13 02/27/18 08:13 02/27/18 08:13 General: Alert, Oriented x3, Cooperative Extremities: No cyanosis, Capillary Refill Less than 3 Seconds, No Calf Tenderness - Negative for vertebral bilateral, Diminished Peripheral Pulses, Peripheral Pulses Normal Skin: Ulcer/ Wound - No purulence, no erythema, streaking, no odor, no infection. The right lower extremity wound is significantly reduced in size. The left lower extremity wound has full epithelialization and this is healed. Wound Measurements and Assessment WC - Nurse 1 - General Ulcer Measurement Start: 02/01/18 09:01 Freq: Status: Active Protocol: Activity Type Activity Date Activity User E-Sign Co-Sign Detail Recorded Client Recorded Date Recorded By Document 02/27/18 08:13 DL [id number] 02/27/18 08:22 DL 02/27/18 08:13 Wound Center Nurse 1 [Ulcer Assessment] 3-left posterior calf -Current Size (cm) - Length 0 -Current Size (cm) - Width 0 -Current Size (cm) - Depth 0 -Total Square Cm 0 -Photo Taken Yes -Exudate Amt None Present (0 %) -Wound Margin Flat & Intact -Granulation Amt Large (67-100%) -Granulation Quality [place] -Necrosis Amt None Present (0 %) -Structure Exposed N/A -Texture (Brittani-wound Skin Appearance) Scarring -Moisture (Brittani-wound Skin Appearance No Abnormality ) -Color (Brittani-wound Skin Appearance) No Abnormality -Temperature (Brittani-wound Skin No Abnormality Appearance) (Pt Warm) -Ulcer Cleansing Wound Cleanser -Foul Odor after Cleansing No -Anesthetic Used 4% Lidocaine Solution #2-right galvez cluster -Current Size (cm) - Length 0.4 -Current Size (cm) - Width 0.4 -Current Size (cm) - Depth 0.1 -Total Square Cm 0.16 -Photo Taken No -Exudate Amt None Present (0 %) -Wound Margin Thickened -Granulation Amt Large (67-100%) -Granulation Quality Red -Necrosis Amt None Present (0 %) -Structure Exposed N/A -Texture (Brittani-wound Skin Appearance) Scarring -Moisture (Brittani-wound Skin Appearance Dry/Scaly ) -Color (Brittani-wound Skin Appearance) Hemosiderin Staining -Temperature (Brittani-wound Skin No Abnormality Appearance) (Pt Warm) -Ulcer Cleansing Wound Cleanser -Foul Odor after Cleansing No -Anesthetic Used 4% Lidocaine Solution [Edema Assessment] -Right Calf (cm) 57.2 -Right Ankle (cm) 34.2 -Left Calf (cm) 57.2 -Left Ankle (cm) 33.5 WC - Nurse 2 - General Ulcer CM Notes Start: 02/01/18 09:01 Freq: Status: Active Protocol: Activity Type Activity Date Activity User E-Sign Co-Sign Detail Recorded Client Recorded Date Recorded By Document 02/27/18 08:27 [id number] 02/27/18 08:29 02/27/18 08:27 Wound Center Nurse 2 [Procedure/Treatment] 3-left posterior calf -Time 08:27 -Correct Patient Yes -Correct Side, Site, Position Yes -Post Debridement Size (cm) - Length 0 -Post Debridement Size (cm) - Width 0 -Post Debridement Size (cm) - Depth 0 -Total Square Cm 0 -Wound/Ulcer Outcome Healed- Epithelialized #2-right galvez cluster -Time 08:28 -Correct Patient Yes -Correct Side, Site, Position Yes -Correct Procedure Yes -Procedure Performed Yes -Type of Procedure Debridement -Clinical Debridement Subcutaneous -Post Debridement Size (cm) - Length 0.4 -Post Debridement Size (cm) - Width 0.8 -Post Debridement Size (cm) - Depth 0.1 -Total Square Cm 0.32 -Wound/Ulcer Outcome Not Healed -Foul Odor after Cleansing No -Bioengineered Tissue No -Bleeding Controlled with NA -Treatment Response Procedure Tolerated Well [See Physician Procedure note for Specifics] Pain Scale: 0-10 Numeric [Pain] -Is Patient Pain Free? Yes Musculoskeletal: No Tenderness to Palpation of Joints or Extremities, Muscle Wasting, - - Bilateral lower extremity compartments remain soft touch Neurological: - - Lack of epicritic sensation light touch bilateral lower extremities Psych/Mental Status: Normal Affect, Appropriate Debridement Note Post-Debridement Measurements/Treatment WC - Nurse 2 - General Ulcer CM Notes Start: 02/01/18 09:01 Freq: Status: Active Protocol: Activity Type Activity Date Activity User E-Sign Co-Sign Detail Recorded Client Recorded Date Recorded By Document 02/13/18 09:39 [id number] 02/13/18 09:41 Document 02/20/18 09:21 [id number] 02/20/18 09:24 Document 02/27/18 08:27 [id number] 02/27/18 08:29 02/13/18 02/20/18 02/27/18 09:39 09:21 08:27 Wound Center Nurse 2 3-left posterior calf -Time 09:40 09:24 08:27 -Correct Patient Yes Yes Yes -Correct Side, Site, Position Yes Yes Yes -Correct Procedure Yes Yes -Procedure Performed Yes Yes -Type of Procedure Debridement Debridement -Clinical Debridement Subcutaneous Subcutaneous -Post Debridement Size (cm) - Length 0.5 0.3 0 -Post Debridement Size (cm) - Width 0.3 0.3 0 -Post Debridement Size (cm) - Depth 0.1 0.1 0 -Total Square Cm 0.15 0.09 0 -Wound/Ulcer Outcome Not Healed Not Healed Healed- Epithelialized -Ulcer Cleansing Rinsed/ Rinsed/ Irrigated with Irrigated with Saline Saline -Foul Odor after Cleansing No No -Bioengineered Tissue No No -Bleeding Controlled with Pressure Pressure -Treatment Response Procedure Procedure Tolerated Well Tolerated Well #2-right galvez cluster -Time 09:40 09:24 08:28 -Correct Patient Yes Yes Yes -Correct Side, Site, Position Yes Yes Yes -Correct Procedure Yes Yes Yes -Procedure Performed Yes Yes Yes -Type of Procedure Debridement Debridement Debridement -Clinical Debridement Subcutaneous Subcutaneous Subcutaneous -Post Debridement Size (cm) - Length 5.9 2 0.4 -Post Debridement Size (cm) - Width 8.9 2 0.8 -Post Debridement Size (cm) - Depth 0.2 0.1 0.1 -Total Square Cm 52.51 4 0.32 -Wound/Ulcer Outcome Not Healed Not Healed Not Healed -Ulcer Cleansing Rinsed/ Rinsed/ Irrigated with Irrigated with Saline Saline -Foul Odor after Cleansing No No No -Bioengineered Tissue No No No -Bleeding Controlled with Pressure Pressure NA -Other 60% of ulcer was debrided. -Treatment Response Procedure Procedure Procedure Tolerated Well Tolerated Well Tolerated Well Pain Scale: 0-10 Numeric Is Patient Pain Free? Yes Yes Yes Wound debrided: leg Laterality: Right Type of Debridement: Excisional debridement Anesthesia Used: 5% Lidocaine Gel Depth: in the subcutaneous layer Percentage of wound debrided: 100 Instrument Used: #15 blade Severity: Fat Layer Exposed Amount of bleeding with debridement: Mild Bleeding Controlled with: Pressure Patient tolerated procedure well Assessment/Plan Active Problems Smoker (Chronic) Obesity (Chronic) Malnutrition (Chronic) Venous insufficiency (Chronic) Chronic ulcer of right leg with fat layer exposed (Chronic) Edema, lower extremity (Chronic) Assessment: right leg ulcer. left leg ulcer healed. edema right lower extremity, venous insufficiency noted. diabetes. malnutrition. comorbidities : obesity. Bronchitis. Fever. smoker Plan: I discussed this patient's case and care plan. Debridement was performed as noted in the clinical nursing panel. To elevate legs at rest to decrease pressure to his healing ulceration site. To control edema to optimize healing. To elevate limbs at rest. To continue compression dressing with the stocking to the left limb. A new CircAid compression dressing was also recently provided to the bilateral limbs and he is using this well. Venous doppler with venous reflux examination was ordered to assess for insufficiency and this was discussed. Intervention was recommended and scheduled with Dr. Awan was not completed. He was advised to follow-up as scheduled. Smoking cessation was encouraged. To monitor for signs of infection or for new wound formation or worsening status. He was reassured this is not noted today. Debridement was performed as noted in the clinical panel. Dara was applied he was advised to change this daily to both limbs. His onset of wound was December 31, 2017 and he has not demonstrated closure with traditional wound care. I recommend application of advanced wound care product and prior authorization will be initiated for epi fix. preauthorization is pending. The indications, planned procedure, and anticipated healing time management were discussed in detail. He is amenable to proceed. It is okay for him to shower and wash his legs gently with soap and water. To return to clinic in 2 week or call sooner if he has any questions or concerns. I answered all his questions today. The center is closed next week on Sunday due to national holiday.
== END 2018-03-02 23:59 ==
LOC: WC 08:30
PROVIDERS: Family Provider Nurse Practitioner Primary Care; PCP Nurse Practitioner Primary Care; Visit Provider Podiatrist
DX: E11.622 Type 2 diabetes mellitus with other skin ulcer (principal); I87.2 Venous insufficiency (chronic) (peripheral); L97.812 Non-pressure chronic ulcer of other part of right lower leg with fat layer exposed; E66.9 Obesity, unspecified; Z71.3 Dietary counseling and surveillance; R60.0 Localized edema; F17.200 Nicotine dependence, unspecified, uncomplicated; L97.822 Non-pressure chronic ulcer of other part of left lower leg with fat layer exposed
CPT/HCPCS: 11042; 11045; 29581; 99212; G0463